=== PATIENT | male | born 1990 | race Caucasian/White ===

== ENCOUNTER 2019-05-01 20:49 | Emergency (ER) | payer BC, MEDICAID ==
[~2019-05-01] VITALS: Ht 188 cm; Wt 124.7 kg
[2019-05-01 21:05] VITALS: BP 135/90
--- NOTE | 2019-05-01 21:05 | NUR ---
TO BED # 02 AMBULATORY
--- NOTE | 2019-05-01 21:22 | NUR ---
28 YEAR OLD MALE COMPLAINS OF RIGHT EAR AND SIDE OF FACE PAIN SINCE 4PM. PATIENT ALSO COMPLAINS OF NAUSEA, VOMITTING, AND DIZZINESS. PATIENT AOX4, BREATHING EVEN AND UNLABORED, SKIN WARM AND DRY. BED IN LOWEST POSITION, LOCKED, BED RAIL UPX1. PMH - DENIES ALLERGIES - PCN
[2019-05-01] MEDS ORDERED: KETOROLAC 30 MG/ML VIAL IM ONE (21:55)
[2019-05-01 22:20] VITALS: BP 135/90
--- NOTE | 2019-05-01 22:20 | NUR ---
Patient discharged with v/s stable. Written and verbal after care instructions given and explained. Patient alert, oriented and verbalized understanding of instructions. Ambulatory with steady gait. All questions addressed prior to discharge. ID band removed. Patient advised to follow up with PMD. Rx of IBUPROFEN, KEFLEX, OFLOXACIN given. Patient educated on indication of medication including possible reaction and side effects. Opportunity to ask questions provided and answered.
== END 2019-05-01 22:20 | disposition home or self-care (01) ==
LOC: MED 20:49
DX: H66.91 Otitis media, unspecified, right ear (principal); F17.210 Nicotine dependence, cigarettes, uncomplicated; Z88.0 Allergy status to penicillin
CPT/HCPCS: 96372; 99283; J1885